=== PATIENT | male | born 2005 | race Caucasian/White ===

== ENCOUNTER 2023-10-11 10:09 | Emergency (ER) | payer BC ==
[~2023-10-11] VITALS: Ht 172.7 cm; Wt 70.8 kg
[2023-10-11 10:26] VITALS: O2SAT 99
[2023-10-11] MEDS ORDERED: NAPR-1176 MT (11:41)
[2023-10-11] MEDS: KETOROLAC 15MG/ML VIAL IM ONE (12:01)
[2023-10-11] MEDS: IBUPROFEN 600MG TABLET PO ONE (12:08)
[2023-10-11 13:07] VITALS: BP 118/51; PULSE 65; RESP 18; TEMP 98.1
== END 2023-10-11 12:36 | disposition home or self-care (01) ==
LOC: ER 10:09
DX: S62.336A Displaced fracture of neck of fifth metacarpal bone, right hand, initial encounter for closed fracture (principal); J45.909 Unspecified asthma, uncomplicated; Z98.890 Other specified postprocedural states; Y04.0XXA Assault by unarmed brawl or fight, initial encounter; Y93.89 Activity, other specified; Y92.89 Other specified places as the place of occurrence of the external cause; Y99.8 Other external cause status
CPT/HCPCS: 29125; 73130; 99283

== ENCOUNTER 2023-11-24 12:47 | Emergency (ER) | payer BC, MEDICAID ==
[~2023-11-24] VITALS: Ht 172.7 cm; Wt 73.0 kg
[~2023-11-24 12:47] MED LIST: NAPR-1176 MT
[2023-11-24 12:51] VITALS: TEMP 98.8; O2SAT 99
[2023-11-24 15:13] VITALS: BP 115/74; PULSE 64; RESP 16
== END 2023-11-24 15:16 | disposition home or self-care (01) ==
LOC: ER 12:47
DX: S62.306A Unspecified fracture of fifth metacarpal bone, right hand, initial encounter for closed fracture (principal); J45.909 Unspecified asthma, uncomplicated; Z98.890 Other specified postprocedural states; X58.XXXA Exposure to other specified factors, initial encounter; Y93.89 Activity, other specified; Y92.89 Other specified places as the place of occurrence of the external cause; Y99.8 Other external cause status
CPT/HCPCS: 73130; 99283